=== PATIENT | male | born 1995 | race Caucasian/White ===

== ENCOUNTER 2018-04-11 19:12 | Emergency (ER) | payer BC ==
[2018-04-11] MEDS ORDERED: NA CHLORIDE 0.9% 1,000 ML ONE (20:04)
--- NOTE | 2018-04-11 20:11 | RAD REPORT ---
EXAM DESCRIPTION: RAD - Chest Single View - 04/11/2018 8:03 pm CLINICAL HISTORY: PALPITATIONS Chest pain. COMPARISON: No comparisons FINDINGS: Portable technique limits examination quality. The lungs are grossly clear. The heart is normal in size. No displaced fractures. IMPRESSION: No acute intrathoracic process suspected.
[2018-04-11 20:16] LABS: Absolute Neutrophil 13.2 K/uL (1.8-8.0); Basophils % 0.9 % (0-1.3); Eosinophils % 0.4 % (0-4.4); Lymphocytes % 11.7 % (15.3-44.8); MPV 9.9 fL (7.6-11.3); Monocytes % 11.5 % (3.3-12.3); RBC Red Blood Cell Count 4.97 M/uL (4.33-5.43)
[2018-04-11 20:22] LABS: Protime INR 1.01
[2018-04-11 20:43] LABS: ALT/SGPT 31 U/L (12-78); AST/SGOT 19 U/L (15-37); Albumin 4.7 g/dL (3.4-5.0); Alkaline Phosphatase 79 U/L (45-117); BUN Blood Urea Nitrogen 15 mg/dL (7-18); Bicarbonate 24 mmol/L (21-32); Bilirubin Direct 0.1 mg/dL (0-0.2); Bilirubin Total 0.4 mg/dL (0.2-1.0); Glucose Level 135 mg/dL (74-106); Magnesium 1.9 mg/dL (1.8-2.4); NT PRO-BNP 97 pg/mL (<125); Potassium 3.3 mmol/L (3.5-5.1); Protein, Total 7.9 g/dL (6.4-8.2); Sodium Level 136 mmol/L (136-145); Troponin (Emerg Dept Use Only) < 0.02 ng/mL (0.0-0.045)
[2018-04-11 21:59] LABS: Urine Blood 2+ (NEG); Urine Glucose NEGATIVE (NEG); Urine Protein NEGATIVE (NEG)
[2018-04-11 22:00] LABS: Barbiturates NEGATIVE (NEGATIVE); Benzodiazepines NEGATIVE (NEGATIVE); Cocaine NEGATIVE (NEGATIVE); METHAMPHETAM POSITIVE (NEGATIVE); Methadone NEGATIVE (NEGATIVE); Opiates NEGATIVE (NEGATIVE); Phencyclidine NEGATIVE (NEGATIVE); THC Cannibis POSITIVE (NEGATIVE)
--- NOTE | 2018-04-11 22:14 | ER ---
Nurse's Notes [facility] Name: Leonardo Montalvo Age: 22 yrs Sex: Male : 1995 Arrival Date: 04/11/2018 Time: 19:14 Bed 6 Private MD: Diagnosis: Tachycardia, unspecified Presentation: 04/11 19:27 Presenting complaint: Patient states: had 1 energy drink at 0630 and another at noon. ak1 pt c/o ''racing heart" pt denies chest pain. pt c/o SOB. Transition of care: patient was not received from another setting of care. Onset of symptoms was April 11, 2018. Risk Assessment: Do you want to hurt yourself or someone else? Patient reports no desire to harm self or others. Initial Sepsis Screen: Does the patient meet any 2 criteria? No. Patient's initial sepsis screen is negative. Does the patient have a suspected source of infection? No. Patient's initial sepsis screen is negative. Care prior to arrival: None. 19:27 Method Of Arrival: Ambulatory ak1 19:27 Acuity: ZOHREH 3 ak1 Triage Assessment: 19:28 General: Appears in no apparent distress. slender, Behavior is cooperative, anxious. ak1 Pain: Denies pain. Historical: - Allergies: 19:28 No Known Allergies; ak1 - Home Meds: 19:28 unknown anxiety pill [Active]; ak1 - PMHx: 19:28 Anxiety; ak1 - PSHx: 19:28 Tonsillectomy; ak1 - Immunization history:: Adult Immunizations up to date. - Social history:: Smoking status: Patient uses tobacco products, smokes one pack cigarettes per day. Patient uses street drugs, marijuana. - Ebola Screening: : No symptoms or risks identified at this time. Screenin:31 Abuse screen: Denies threats or abuse. Nutritional screening: No deficits noted. jd3 Tuberculosis screening: No symptoms or risk factors identified. Fall Risk Ambulatory Aid- None/Bed Rest/Nurse Assist (0 pts). Gait- Normal/Bed Rest/Wheelchair (0 pts) Mental Status- Oriented to own ability (0 pts). Total Crowder Fall Scale indicates No Risk (0-24 pts). Assessment: 19:29 General: Appears in no apparent distress. uncomfortable, Behavior is calm, cooperative, jd3 appropriate for age. Pain: Denies pain. Pain does not radiate. Pain began today. Neuro: Level of Consciousness is awake, alert, obeys commands, Oriented to person, place, time, situation, Appropriate for age. Cardiovascular: Denies chest pain, Heart tones S1 S2 present Capillary refill < 3 seconds Patient's skin is warm and dry. Rhythm is sinus tachycardia. Respiratory: Reports shortness of breath Airway is patent Respiratory effort is even, unlabored, Respiratory pattern is regular, symmetrical, Breath sounds are clear bilaterally. GI: No signs and/or symptoms were reported involving the gastrointestinal system. : No signs and/or symptoms were reported regarding the genitourinary system. EENT: No signs and/or symptoms were reported regarding the EENT system. Derm: Skin is intact, Skin is dry, Skin is normal, Skin temperature is warm. Musculoskeletal: Circulation, motion, and sensation intact. Range of motion: intact in all extremities. 20:24 Reassessment: Patient appears in no apparent distress at this time. Patient and/or jd3 family updated on plan of care and expected duration. Pain level reassessed. Patient is alert, oriented x 3, equal unlabored respirations, skin warm/dry/pink. Patient states feeling better. 21:42 Reassessment: Patient appears in no apparent distress at this time. Patient and/or jd3 family updated on plan of care and expected duration. Pain level reassessed. Patient is alert, oriented x 3, equal unlabored respirations, skin warm/dry/pink. Patient states feeling better. 22:19 Reassessment: Patient appears in no apparent distress at this time. Patient and/or jd3 family updated on plan of care and expected duration. Pain level reassessed. Patient is alert, oriented x 3, equal unlabored respirations, skin warm/dry/pink. Patient states feeling better. Vital Signs: 19:28 BP 137 / 83; Pulse 126; Resp 20; Temp 98.6(O); Pulse Ox 98% on R/A; Weight 68.04 kg ak1 (R); Height 6 ft. 3 in. (190.50 cm) (R); Pain 0/10; 20:25 BP 113 / 58; Pulse 110; Resp 20 S; Pulse Ox 100% on R/A; jd3 21:42 BP 110 / 61; Pulse 103; Resp 16 S; Pulse Ox 100% on R/A; jd3 19:28 Body Mass Index 18.75 (68.04 kg, 190.50 cm) ak1 ED Course: 19:14 Patient arrived in ED. al2 19:23 oDnny Zarate, RN is Primary Nurse. jd3 19:25 Bhupinder De La Rosa MD is Attending Physician. tw4 19:28 Triage completed. ak1 19:28 Arm band placed on Patient placed in an exam room, on a stretcher, in view of staff ak1 members, on alarm security or surveillance monitor, on pulse oximetry, Patient notified of wait time. EKG completed in triage. Results shown to MD. 19:31 Patient has correct armband on for positive identification. Bed in low position. Call jd3 light in reach. Side rails up X 1. site monitor on. Pulse ox on. NIBP on. 19:32 Patient maintains SpO2 saturation greater than 95% on room air. jd3 20:03 XRAY Chest (1 view) In Process Unspecified. EDMS 20:25 Missed attempt(s): 20 gauge in right antecubital area. Bleeding controlled, band aid oe applied, catheter tip intact. 20:27 Inserted saline lock: 20 gauge in left antecubital area, using aseptic technique. Blood oe collected. 22:12 IV discontinued, intact, bleeding controlled, No redness/swelling at site. Pressure jd3 dressing applied. 22:18 No provider procedures requiring assistance completed. jd3 Administered Medications: 20:15 Drug: NS 0.9% 1000 ml Route: IV; Rate: 1 bolus; Site: left antecubital; jd3 22:19 Follow up: Response: No adverse reaction; IV Status: Completed infusion; IV Intake: jd3 1000ml Intake: 22:19 IV: 1000ml; Total: 1000ml. jd3 Outcome: 22:13 Discharge ordered by . tw4 22:18 Discharged to home ambulatory. jd3 22:18 Condition: stable 22:18 Discharge instructions given to patient, Instructed on discharge instructions, follow up and referral plans. Demonstrated understanding of instructions, follow-up care. 22:20 Patient left the ED. jd3 Signatures: Dispatcher [employer] EDMS Katherine Hodges, RN RN ak1 Robby Ho oe Donny Zarate, RN RN jd3 Love, Bhupinder [place], [place] tw4
--- NOTE | 2018-04-11 22:14 | EDPHYS ---
Physician Documentation [facility] Name: Leonardo Montalvo Age: 22 yrs Sex: Male : 1995 Arrival Date: 04/11/2018 Time: 19:14 Bed 6 Private MD: ED Physician Bhupinder De La Rosa HPI: 04/11 20:19 This 22 yrs old Male presents to ER via Ambulatory with complaints of tw4 Irregular Pulse. 20:19 The patient presents with a history of irregular heart beat, heart racing. Context: The tw4 symptoms occur at rest. Onset: The symptoms/episode began/occurred today. Duration: The patient or guardian reports multiple episodes, that wax and wane, with no pattern. Modifying factors: The symptoms are aggravated by nothing. The symptoms are alleviated by nothing. Associated signs and symptoms: The patient has no apparent associated signs or symptoms. Severity of symptoms: At their worst the symptoms were moderate in the emergency department the symptoms are unchanged. The patient has not experienced similar symptoms in the past. Historical: - Allergies: 19:28 No Known Allergies; ak1 - Home Meds: 19:28 unknown anxiety pill [Active]; ak1 - PMHx: 19:28 Anxiety; ak1 - PSHx: 19:28 Tonsillectomy; ak1 - Immunization history:: Adult Immunizations up to date. - Social history:: Smoking status: Patient uses tobacco products, smokes one pack cigarettes per day. Patient uses street drugs, marijuana. - Ebola Screening: : No symptoms or risks identified at this time. ROS: 20:19 Constitutional: Negative for fever, chills, and weight loss, Eyes: Negative for injury, tw4 pain, redness, and discharge, Respiratory: Negative for shortness of breath, cough, wheezing, and pleuritic chest pain, Abdomen/GI: Negative for abdominal pain, nausea, vomiting, diarrhea, and constipation, Back: Negative for injury and pain, MS/Extremity: Negative for injury and deformity, Skin: Negative for injury, rash, and discoloration, Neuro: Negative for headache, weakness, numbness, tingling, and seizure. 20:19 Cardiovascular: Positive for palpitations, Negative for chest pain, edema, orthopnea. Exam: 20:19 Constitutional: This is a well developed, well nourished patient who is awake, alert, tw4 and in no acute distress. Head/Face: Normocephalic, atraumatic. Eyes: Pupils equal round and reactive to light, extra-ocular motions intact. Lids and lashes normal. Conjunctiva and sclera are non-icteric and not injected. Cornea within normal limits. Periorbital areas with no swelling, redness, or edema. Chest/axilla: Normal chest wall appearance and motion. Nontender with no deformity. No lesions are appreciated. Respiratory: Lungs have equal breath sounds bilaterally, clear to auscultation and percussion. No rales, rhonchi or wheezes noted. No increased work of breathing, no retractions or nasal flaring. Abdomen/GI: Soft, non-tender, with normal bowel sounds. No distension or tympany. No guarding or rebound. No evidence of tenderness throughout. 20:19 Skin: Warm, dry with normal turgor. Normal color with no rashes, no lesions, and no evidence of cellulitis. MS/ Extremity: Pulses equal, no cyanosis. Neurovascular intact. Full, normal range of motion. Neuro: Awake and alert, GCS 15, oriented to person, place, time, and situation. Cranial nerves II-XII grossly intact. Motor strength 5/5 in all extremities. Sensory grossly intact. Cerebellar exam normal. Normal gait. 20:19 Cardiovascular: Rate: tachycardic, actual rate is 120 bpm, Rhythm: regular, Pulses: no pulse deficits are appreciated, Heart sounds: normal. 20:19 ECG was reviewed by the Attending Physician. Vital Signs: 19:28 BP 137 / 83; Pulse 126; Resp 20; Temp 98.6(O); Pulse Ox 98% on R/A; Weight 68.04 kg ak1 (R); Height 6 ft. 3 in. (190.50 cm) (R); Pain 0/10; 20:25 BP 113 / 58; Pulse 110; Resp 20 S; Pulse Ox 100% on R/A; jd3 21:42 BP 110 / 61; Pulse 103; Resp 16 S; Pulse Ox 100% on R/A; jd3 19:28 Body Mass Index 18.75 (68.04 kg, 190.50 cm) ak1 MDM: 19:25 Patient medically screened. tw4 20:19 Differential diagnosis: arrythmia, dehydration, stress disorder. Data reviewed: vital tw4 signs, nurses notes. Data interpreted: cafeteria monitor: rhythm is sinus tachycardia, Pulse oximetry: Interpretation: normal. Counseling: I had a detailed discussion with the patient and/or guardian regarding: the historical points, exam findings, and any diagnostic results supporting the discharge/admit diagnosis. 22:11 Special discussion: I discussed with the patient/guardian in detail that at this point tw4 there is no indication for admission to the hospital. It is understood, however, that if the symptoms persist or worsen the patient needs to return immediately for re-evaluation. 04/11 19:40 Order name: Basic Metabolic Panel; Complete Time: 21:41 04/11 21:41 Interpretation: Normal except: K 3.3; GLUC 135; GFR 82. 04/11 19:40 Order name: CBC with Diff; Complete Time: 21:41 04/11 21:41 Interpretation: Normal except: WBC 17.5; KARTHIK% 75.5; LYM% 11.7; NEUT A 13.2. 04/11 19:40 Order name: LFT's; Complete Time: 21:41 04/11 21:41 Interpretation: Within normal limits. 04/11 19:40 Order name: Magnesium; Complete Time: 21:41 04/11 21:41 Interpretation: Within normal limits: MG 1.9. 04/11 19:40 Order name: NT PRO-BNP; Complete Time: 21:41 04/11 21:41 Interpretation: Within normal limits: NT PRO-BNP 97. 04/11 19:40 Order name: PT-INR; Complete Time: 21:41 04/11 21:41 Interpretation: Within normal limits: PT 11.9. 04/11 19:29 Order name: EKG; Complete Time: 19:30 ma1 04/11 19:40 Order name: Troponin (emerg Dept Use Only); Complete Time: 21:41 04/11 21:41 Interpretation: TROPED < 0.02. 04/11 19:40 Order name: XRAY Chest (1 view) 04/11 19:40 Order name: EKG; Complete Time: 19:41 04/11 19:40 Order name: D-Dimer; Complete Time: 21:40 04/11 19:40 Order name: Urine Drug Screen [facility] 04/11 21:53 Order name: Urine Dipstick--Ancillary (enter results) [facility] 04/11 19:29 Order name: EKG - Nurse/Tech; Complete Time: 19:32 ak1 04/11 19:40 Order name: Cardiac monitoring; Complete Time: 19:49 04/11 19:40 Order name: EKG - Nurse/Tech; Complete Time: 19:49 04/11 19:40 Order name: IV Saline Lock; Complete Time: 20:18 04/11 19:40 Order name: Labs collected and sent; Complete Time: 20:18 04/11 19:40 Order name: O2 Per Protocol; Complete Time: 19:49 04/11 19:40 Order name: O2 Sat Monitoring; Complete Time: 19:49 04/11 19:40 Order name: Urine Dipstick-Ancillary (obtain specimen); Complete Time: 21:43 tw4 EC:19 Rate is 120 beats/min. Rhythm is regular, Sinus tachycardia. QRS [place] is Normal. [place] tw4 interval is normal. QRS interval is normal. QT interval is normal. No Q waves. T waves are Normal. No ST changes noted. Clinical impression: Sinus tachycardia. Interpreted by me. Reviewed by me. Administered Medications: 20:15 Drug: NS 0.9% 1000 ml Route: IV; Rate: 1 bolus; Site: left antecubital; jd3 22:19 Follow up: Response: No adverse reaction; IV Status: Completed infusion; IV Intake: jd3 1000ml Disposition: 04/11/18 22:13 Discharged to Home. Impression: Tachycardia, unspecified. - Condition is Stable. - Discharge Instructions: Substance Use Disorder, Sinus Tachycardia. - Medication Reconciliation Form, Thank You Letter, Antibiotic Education, Prescription Opioid Use form. - Follow up: Private Physician; When: Upon discharge from the Emergency Department; Reason: Recheck today's complaints, Continuance of care. - Problem is new. - Symptoms have improved. Signatures: Dispatcher [employer] EDMS Katherine Hodges RN RN ak1 Donny Zarate RN RN jd3 Bhupinder De La Rosa MD MD tw4 Corrections: (The following items were deleted from the chart) 22:20 22:13 04/11/2018 22:13 Discharged to Home. Impression: Tachycardia, unspecified. jd3 Condition is Stable. Forms are Medication Reconciliation Form, Thank You Letter, Antibiotic Education, Prescription Opioid Use. Follow up: Private Physician; When: Upon discharge from the Emergency Department; Reason: Recheck today's complaints, Continuance of care. Problem is new. Symptoms have improved. tw4
--- NOTE | 2018-04-12 13:26 | EKG ---
Test Date: 2018-04-11 Test Time: 19:29:20 Manager Building: [facility] MEASUREMENT RESULTS: Intervals: Rate: 120 WI: 158 QRSD: 92 QT: 318 QTc: 449 [place]: P: 73 WI: 158 QRS: 74 T: 64 INTERPRETIVE STATEMENTS: Sinus tachycardia Otherwise normal ECG No previous ECG available for comparison Electronically Signed On 04-12-18 13:24:10 PHOTOGRAPHY SPOTTER by Juanpablo Kenny
== END 2018-04-11 22:20 | disposition home or self-care (01) ==
LOC: ER 19:12
DX: R00.0 Tachycardia, unspecified (principal); F17.210 Nicotine dependence, cigarettes, uncomplicated; Z72.0 Tobacco use
CPT/HCPCS: 36415; 71045; 80048; 80076; 80307; 81003; 83735; 83880; 84484; 85025; 85379; 85610; 93005; 96360; 96361; 99285; J7030